=== PATIENT | female | born 1960 | race Caucasian/White ===

== ENCOUNTER 2019-06-19 01:14 | Emergency (ER) | payer MEDICARE ==
[~2019-06-19] VITALS: Ht 154.9 cm; Wt 62.7 kg
[2019-06-19 01:19] VITALS: Ht 154.9 cm; Wt 62.7 kg
[2019-06-19] MEDS ORDERED: LANTUS SQ (01:22)
[2019-06-19] MEDS ORDERED: HUMALOG (01:22)
[2019-06-19] MEDS ORDERED: NORVASC10 MG PO (01:23)
[2019-06-19] MEDS ORDERED: TIROSINT100 MCG PO (01:23)
[2019-06-19] MEDS ORDERED: LISINOPRIL PO (01:23)
[2019-06-19] MEDS ORDERED: ESTROTEST PO (01:24)
[2019-06-19] MEDS ORDERED: D3 (01:24)
[2019-06-19 01:45] LABS: BASOPHILS 0.1 % (0-2); EOSINOPHILS 2.2 % (0-7); HEMATOCRIT 44.5 % (36.0-48.0); HEMOGLOBIN 14.7 g/dL (12-16); IMMATURE GRANULOCYTES 0.2 % (0-5); LYMPHOCYTES 7.7 % (15-50); MCH 31.9 pg (26.0-34.0); MCV 96.5 fL (80.0-100.0); MEAN PLATELET VOLUME 9.9 fL (7.4-10.4); NEUTROPHILS 84.8 % (40-80); PLATELET COUNT 319 10x3/uL (130-400); RBC 4.61 10x6/uL (4.00-5.40); RDW 12.9 % (11.5-14.5); WBC 9.2 10x3/uL (4.8-10.8)
[2019-06-19 01:57] LABS: CALC OSMOLALITY 283 mosm/kg (275-300); CALCIUM 8.6 mg/dL (8.5-10.1); CARBON DIOXIDE 24.6 mmol/L (21.0-32.0); CHLORIDE - SERUM 101 mmol/L (98-107); GLUCOSE 277 mg/dL (74-106); POTASSIUM - SERUM 4.8 mmol/L (3.5-5.1); SODIUM 135 mmol/L (136-145); UREA NITROGEN 23 mg/dL (7-18); eGFR NON AFRICAN AMERICAN 61 mL/min (90-120)
[2019-06-19 02:05] LABS: ALBUMIN 3.5 g/dL (3.4-5.0); ALKALINE PHOSPHATASE 82 U/L (46-116); ALT (SGPT) 54 U/L (10-68); AMYLASE - SERUM 37 U/L (25-115); LIPASE 79 U/L (73-393); PROTEIN - SERUM 7.4 g/dL (6.4-8.2)
[2019-06-19 02:08] LABS: KETONE - SERUM NEGATIVE (NEGATIVE)
[2019-06-19] MEDS ORDERED: ZOFRAN ODT4 MG/UDTAB PO (02:33)
[2019-06-19] MEDS ORDERED: LOMOTIL 2.5-0.1 EAC1 PO (02:33)
[2019-06-19 04:26] VITALS: BP 131/69
== END 2019-06-19 04:31 | disposition home or self-care (01) ==
LOC: D.ER 01:14
PROVIDERS: Emergency Medicine
DX: R11.2 Nausea with vomiting, unspecified (principal); R19.7 Diarrhea, unspecified; E11.8 Type 2 diabetes mellitus with unspecified complications; I10 Essential (primary) hypertension; Z72.0 Tobacco use; M79.7 Fibromyalgia